=== PATIENT | female | born 1980 | race African-American/Black ===

== ENCOUNTER 2018-09-07 20:01 | Emergency (ER) | payer OTHER ==
[~2018-09-07] VITALS: Ht 170.2 cm; Wt 70.3 kg
[2018-09-07] MEDS ORDERED: ANTIVERT25 MG PO (21:04)
[2018-09-07] MEDS ORDERED: ZOFRAN ODT4 MG PO (21:04)
[2018-09-07 21:24] VITALS: BP 113/74
== END 2018-09-07 21:24 | disposition home or self-care (01) ==
LOC: ER 20:01
DX: H81.392 Other peripheral vertigo, left ear (principal); E78.00 Pure hypercholesterolemia, unspecified

== ENCOUNTER 2019-11-16 22:52 | Emergency (ER) | payer OTHER ==
[~2019-11-16] VITALS: Ht 167.6 cm; Wt 60.3 kg
[~2019-11-16 22:52] MED LIST: ANTIVERT25 MG PO; ZOFRAN ODT4 MG PO
[2019-11-16] MEDS ORDERED: NORCO 5-325 TA1 EAC1 PO (23:09)
[2019-11-16] MEDS ORDERED: CIPRO500 M1 PO (23:12)
[2019-11-16 23:56] LABS: URINE BILIRUBIN NEGATIVE (Negative); URINE BLOOD NEGATIVE (Negative); URINE CLARITY CLEAR; URINE COLOR YELLOW; URINE GLUCOSE-RANDOM* NEGATIVE (Negative); URINE KETONES NEGATIVE (Negative); URINE LEUKOCYTES-REFLEX TRACE (Negative); URINE NITRITE-REFLEX NEGATIVE (Negative); URINE PROTEIN (DIPSTICK) NEGATIVE (Negative); URINE SPECIFIC GRAVITY 1.015 (1.005-1.035); URINE UROBILINOGEN 0.2 E.U./dl (0.2-1.0)
[2019-11-17 00:01] LABS: ABSOLUTE NEUTROPHILS 8.5 thou/uL (1.4-8.2); BASOPHILS 0.9 % (0.0-2.0); EOSINOPHILS 0.7 % (0.0-3.0); HEMATOCRIT 41.4 % (37.0-47.0); MCH 30.3 pg (26.0-34.0); MCHC 33.8 g/dL (28.0-37.0); MCV 89.7 fL (80.0-100.0); MONOCYTES 5.9 % (1.0-8.0); PLATELET COUNT 264 thou/uL (150-400); POLYS 72.5 % (36.0-66.0); RBC 4.62 mil/uL (4.20-5.00); RDW 11.7 % (10.5-14.5); WBC 11.8 thou/uL (4.0-11.0)
[2019-11-17 00:06] LABS: CALCIUM 9.3 mg/dL (8.5-10.1); MAGNESIUM 1.8 mg/dL (1.8-2.4); POTASSIUM 3.9 mmol/L (3.5-5.1)
[2019-11-17 00:30] VITALS: BP 142/82
--- NOTE | 2019-11-17 08:16 | EKG ---
[facility] [place] [address] ELECTROCARDIOGRAM REPORT Name: CHASE NORRIS [id number] Admission: 11/16/19 Attend Phys: Discharge: 11/17/19 Date of : 76 Report #: [id number] THIS REPORT FOR: cc: Leidy Schaffer Tamera L. ARNP Couchonnal, Luis F. 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
== END 2019-11-17 00:53 | disposition home or self-care (01) ==
LOC: ER 22:52
PROVIDERS: Emergency Medicine Emergency Medical Services
DX: R00.0 Tachycardia, unspecified (principal); R42 Dizziness and giddiness; E78.00 Pure hypercholesterolemia, unspecified

== ENCOUNTER 2020-01-19 04:10 | Emergency (ER) | payer OTHER ==
[~2020-01-19] VITALS: Ht 167.6 cm; Wt 63.5 kg
[~2020-01-19 04:10] MED LIST changes: +CIPRO500 M1 PO; +NORCO 5-325 TA1 EAC1 PO
[2020-01-19] MEDS ORDERED: [UNRECOGNIZED DRUG - OTHER] TOP (04:17)
[2020-01-19 05:08] LABS: ABSOLUTE NEUTROPHILS 5.3 thou/uL (1.4-8.2); BASOPHILS 1.5 % (0.0-2.0); EOSINOPHILS 0.4 % (0.0-3.0); HEMATOCRIT 39.2 % (37.0-47.0); HEMOGLOBIN 13.4 gm/dL (12.0-15.0); LYMPHOCYTES 19.1 % (24.0-44.0); MCH 30.7 pg (26.0-34.0); MCHC 34.2 g/dL (28.0-37.0); MCV 89.8 fL (80.0-100.0); MONOCYTES 9.1 % (1.0-8.0); PLATELET COUNT 197 thou/uL (150-400); POLYS 69.9 % (36.0-66.0); RBC 4.36 mil/uL (4.20-5.00); RDW 12.1 % (10.5-14.5); WBC 7.6 thou/uL (4.0-11.0)
[2020-01-19 05:24] LABS: ANION GAP 11 mmol/L (7-16); BUN 13 mg/dL (7-18); CALCIUM 8.5 mg/dL (8.5-10.1); CHLORIDE 102 mmol/L (98-107); CO2 24 mmol/L (21-32); CREATININE 0.8 mg/dL (0.6-1.0); GLUCOSE 107 mg/dL (74-106); POTASSIUM 4.1 mmol/L (3.5-5.1); SODIUM 137 mmol/L (136-145)
[2020-01-19 05:33] LABS: MAGNESIUM 1.8 mg/dL (1.8-2.4); TROPONIN-I <0.06 ng/mL (<0.06)
[2020-01-19 06:15] VITALS: BP 139/89
--- NOTE | 2020-01-19 08:25 | EKG ---
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
== END 2020-01-19 06:19 | disposition home or self-care (01) ==
LOC: ER 04:10
PROVIDERS: Emergency Medicine
DX: R00.2 Palpitations (principal); E78.00 Pure hypercholesterolemia, unspecified

== ENCOUNTER 2021-09-25 15:30 | Emergency (ER) | payer OTHER ==
[~2021-09-25] VITALS: Ht 167.6 cm; Wt 59.9 kg
[~2021-09-25 15:30] MED LIST changes: +[UNRECOGNIZED DRUG - OTHER] TOP
[2021-09-25 15:41] VITALS: BP 102/67
[2021-09-25 17:07] LABS: CALCIUM 9.1 mg/dL (8.5-10.1); CREATININE 0.9 mg/dL (0.6-1.0)
[2021-09-25 17:15] LABS: ALBUMIN 3.9 g/dL (3.4-5.0); MAGNESIUM 2.1 mg/dL (1.8-2.4); TOTAL BILIRUBIN 0.4 mg/dL (0.2-1.0); TOTAL PROTEIN 7.2 g/dL (6.4-8.2)
[2021-09-25 17:25] LABS: HEMATOCRIT 42.1 % (37.0-47.0); HEMOGLOBIN 14.1 gm/dL (12.0-15.0); MCH 30.7 pg (26.0-34.0); MCHC 33.4 g/dL (28.0-37.0); MCV 91.8 fL (80.0-100.0); RBC 4.59 mil/uL (4.20-5.00); RDW 11.9 % (10.5-14.5); WBC 4.6 thou/uL (4.0-11.0)
[2021-09-25] MEDS ORDERED: HYDROXYZINE PAM25 M1 PO (17:44)
== END 2021-09-25 18:06 | disposition home or self-care (01) ==
LOC: ER 15:30
PROVIDERS: Nurse Practitioner Family
DX: R20.2 Paresthesia of skin (principal); E78.00 Pure hypercholesterolemia, unspecified; Z79.899 Other long term (current) drug therapy; Z91.09 Other allergy status, other than to drugs and biological substances

== ENCOUNTER 2021-09-29 03:58 | Emergency (ER) | payer OTHER ==
[~2021-09-29] VITALS: Ht 167.6 cm; Wt 59.9 kg
[~2021-09-29 03:58] MED LIST changes: +HYDROXYZINE PAM25 M1 PO
[2021-09-29 05:46] VITALS: BP 131/77
== END 2021-09-29 06:18 | disposition home or self-care (01) ==
LOC: ER 03:58
DX: R20.2 Paresthesia of skin (principal); E78.00 Pure hypercholesterolemia, unspecified; Z79.899 Other long term (current) drug therapy; Z91.09 Other allergy status, other than to drugs and biological substances

== ENCOUNTER 2021-10-01 18:54 | Emergency (ER) | payer OTHER ==
[~2021-10-01] VITALS: Ht 167.6 cm; Wt 58.1 kg
[2021-10-01 20:01] LABS: HEMATOCRIT 43.1 % (37.0-47.0); HEMOGLOBIN 14.2 gm/dL (12.0-15.0); MCH 29.9 pg (26.0-34.0); MCHC 32.9 g/dL (28.0-37.0); MCV 90.7 fL (80.0-100.0); RBC 4.75 mil/uL (4.20-5.00); WBC 5.9 thou/uL (4.0-11.0)
[2021-10-01 20:15] LABS: CALCIUM 9.5 mg/dL (8.5-10.1); CREATININE 0.7 mg/dL (0.6-1.0); POTASSIUM 3.7 mmol/L (3.5-5.1)
[2021-10-01 20:27] LABS: ALBUMIN 4.1 g/dL (3.4-5.0); TOTAL BILIRUBIN 0.3 mg/dL (0.2-1.0); TOTAL PROTEIN 7.8 g/dL (6.4-8.2)
[2021-10-01 21:10] VITALS: BP 99/71
--- NOTE | 2021-10-02 08:22 | EKG ---
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 : 1980 Requested By: Sharla Nunes Order Number: [id number] MD: Jovon Bettencourt Measurements Intervals [place] Rate: 117 P: 77 [place]: 99 QRS: 29 QRSD: 85 T: 13 QT: 307 QTc: 429 Interpretive Statements Sinus tachycardia Biatrial enlargement RSR' in V1 or V2, right VCD or RVH Compared to ECG 01/19/2020 05:07:30 Atrial abnormality now present Right ventricular hypertrophy now present Electronically Signed On 10-02-2021 8:21:58 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
== END 2021-10-01 21:11 | disposition home or self-care (01) ==
LOC: ER 18:54
PROVIDERS: Nurse Practitioner
DX: R00.2 Palpitations (principal); F41.9 Anxiety disorder, unspecified; E78.00 Pure hypercholesterolemia, unspecified; Z79.899 Other long term (current) drug therapy; Z91.09 Other allergy status, other than to drugs and biological substances